=== PATIENT | male | born 1950 | race Caucasian/White ===

== ENCOUNTER 2016-08-24 10:33 | Day surgery (SDC) | payer OTHER ==
[2016-08-24] VITALS (11 sets, daily range): BP systolic 106–154; BP diastolic 63–84; PULSE 74–89; RESP 11–24; Ht 190.5 cm; Wt 118.8 kg
[~2016-08-24] VITALS: Ht 190.5 cm; Wt 118.8 kg
[~2016-08-24 10:33] MED LIST: CEFAZOLIN 2 GM/50 ML (PMX) 50 ML IVPB ONE; SOD CHLORIDE 0.9% 1,000 ML IV SCH; TRAM50TA2 PO
[2016-08-24] MEDS ORDERED: LOSA50TA6 PO (12:27)
[2016-08-24] MEDS ORDERED: PRAV40TA76 PO (12:27)
[2016-08-24] MEDS ORDERED: GLIP5TAB13 PO (12:27)
[2016-08-24] MEDS ORDERED: MTF1000T PO (12:27)
[2016-08-24] MEDS ORDERED: BUPIVACAINE 0.25%/EPI (SDV) 30 ML INJ ONE (14:36)
--- NOTE | 2016-08-24 14:43 | HPN ---
Date/Time of Note Date/Time of Note DATE: 08/24/16 TIME: 14:43 Interval H&P Admission Note Pt. seen H&P reviewed: No system changes TAI HAWK MD Aug 24, 2016 14:43
[2016-08-24] MEDS ORDERED: PROPOFOL 40 ML ONE (14:46)
[2016-08-24] MEDS ORDERED: MIDAZOLAM 1 MG/ML 2 ML INJ ONE (14:46)
[2016-08-24] MEDS ORDERED: FENTAnyl 50 MCG/ML VIAL ONE (14:46)
[2016-08-24] MEDS ORDERED: METOCLOPRAMIDE 10 MG INJ ONE (14:46)
[2016-08-24] MEDS ORDERED: CEFAZOLIN 1 GM INJ ONE (15:04)
[2016-08-24] MEDS ORDERED: LIDOCAINE 1%/EPI 30 ML INJ ONE (15:13)
[2016-08-24] MEDS ORDERED: POLYMYXIN/BACITRACIN 1L IRRIG ONE (15:49)
[2016-08-24] MEDS ORDERED: KETOROLAC 30 MG INJ IV PRN (16:30)
[2016-08-24] MEDS ORDERED: ONDANSETRON 4 MG INJ IV PRN (16:30)
[2016-08-24] MEDS ORDERED: IBUPROFEN 600 MG TAB PO PRN (16:30)
[2016-08-24] MEDS ORDERED: morphine 2 MG INJ IV PRN (16:30)
[2016-08-24] MEDS ORDERED: LIDOCAINE 1%/EPI 30 ML INJ INJ ONE (16:34)
--- NOTE | 2016-08-24 19:29 | OPR ---
DATE OF OPERATION: 08/24/2016 PREOPERATIVE DIAGNOSIS: Left neck mass. POSTOPERATIVE DIAGNOSIS: Left neck mass. OPERATION PERFORMED: Excision of left neck mass greater than 3 cm. NUCLEAR ENGINEERING TECHNICIAN: None. ANESTHESIA: General LMA. ANESTHESIOLOGIST: Dr. Rothman FLUIDS: Crystalloid. ESTIMATED BLOOD LOSS: Minimal. SPECIMEN: Left neck mass. INDICATIONS FOR SURGERY: The patient is an obese 65-year-old gentleman with a history of hypertension and diabetes who presented to the office complaining of a mass of the left neck. It wa s located just posterior to the sternocleidomastoid muscle and involving the posterior border. Stat ed it had been present for several years and enlarging and causing increasing discomfort. He was th erefore scheduled for excision for symptom relief and definitive pathological diagnosis. All risks and benefits of the procedure including but not limited to wound infection, excessive bleeding, post operative seroma/hematoma formation, mass recurrence, neurovascular damage, etc. were all explained to the patient in full detail. He fully understood and wished to proceed with the procedure. Infor med consent was obtained. PROCEDURE IN DETAIL: The patient was brought to the operating room and placed supine on the operati ng table. Bilateral sequential compression devices were placed on both lower extremities and a dose of broad-spectrum perioperative intravenous antibiotics was given. The patient was then given MAC anesthesia and sedated. His left neck was prepped and draped in standard surgical fashion. The sit e of the mass was preoperatively marked and confirmed with the patient in the holding area. After p erformance of a surgical time-out, an oblique incision was made in the posterior neck, parallel to t he sternocleidomastoid muscle, after anesthetizing the skin with 1% lidocaine. Incision was made wi th a 15 blade scalpel and carried through the skin into the subcutaneous tissues. A large lipomatou s mass was identified. It was a very scarred into the surrounding tissues and it was rather difficu lt to maintain adequate neck extension in order to be able to dissect the mass. Therefore, decision was made to provide anesthesia via an LMA, which was inserted by the anesthesiologist. The patient was then reprepped and redraped and his head turned to the right side creating better exposure. Di ssection was then done and the mass was noted to be encasing a branch of the spinal accessory nerve to the trapezius muscle. Therefore, it was decided only to take out the portions of the mass, which were not involving the nerve, and leave the portion of the mass, which was encompassing the nerve, to prevent damage to it. This then completed and the specimen was passed off the field. The wound was then inspected and noted to have adequate hemostasis. The wound cavity was then irrigated with warm normal saline and the irrigant returned clear. The incision was then closed in layers using in terrupted 3-0 Vicryl sutures for the dermal layer and the skin was reapproximated using 4-0 Monocryl suture in a running subcuticular fashion. The incision was cleaned and Dermabond was applied and t he patient was awoken from anesthesia and transported to the recovery room in stable condition. The patient was able to turn his neck to both the left and right side and also shrug his shoulders in t he recovery room postoperatively. Dictated By: TAI COTTO/DELMY Conf#: [id number] DID#: [id number]
== END 2016-08-24 19:50 | disposition left against medical advice (07) ==
LOC: SDS 10:33
PROVIDERS: ATTEND Surgery
DX: D17.0 Benign lipomatous neoplasm of skin and subcutaneous tissue of head, face and neck (principal); I10 Essential (primary) hypertension; E11.9 Type 2 diabetes mellitus without complications; E78.5 Hyperlipidemia, unspecified
CPT/HCPCS: 11423; 82962; 88307; J0690; J2250; J2765; J3010; Z7512; Z7610

== ENCOUNTER 2016-11-16 08:33 | Day surgery (SDC) | payer OTHER ==
[~2016-11-16] VITALS: Ht 188 cm; Wt 119.2 kg
[~2016-11-16 08:33] MED LIST changes: -CEFAZOLIN 2 GM/50 ML (PMX) 50 ML IVPB ONE; +GLIP5TAB13 PO; +LOSA50TA6 PO; +MTF1000T PO; +PRAV40TA76 PO; -SOD CHLORIDE 0.9% 1,000 ML IV SCH; -TRAM50TA2 PO
[2016-11-16 09:14] VITALS: Ht 188 cm; Wt 119.2 kg
== END 2016-11-16 10:26 | disposition home or self-care (01) ==
LOC: GIL 08:33
PROVIDERS: ATTEND Internal Medicine Gastroenterology
DX: Z12.11 Encounter for screening for malignant neoplasm of colon (principal); Z53.9 Procedure and treatment not carried out, unspecified reason